=== PATIENT | female | born 1990 | race Caucasian/White ===

== ENCOUNTER 2020-11-05 10:01 | Outpatient (RCR) | payer OTHER, SELFPAY ==
[2020-11-05 11:25] VITALS: BP 96/59; PULSE 83
== END 2021-02-03 23:59 | disposition home or self-care (01) ==
LOC: ANHOBOP 10:01
PROVIDERS: Visit Provider Obstetrics & Gynecology
DX: O36.8120 Decreased fetal movements, second trimester, not applicable or unspecified (principal); Z3A.25 25 weeks gestation of pregnancy
CPT/HCPCS: 59025

== ENCOUNTER 2021-01-27 20:33 | Observation (INO) | payer OTHER, SELFPAY ==
[2021-01-27 20:42] VITALS: TEMP 36.8
--- NOTE | 2021-01-27 20:50 | PC.NURSE ---
Addendum entered by Juan Parrish RN 01/27/21 23:53: NOTE TIME SHOULD BE 2250 Original Note: Pt states contractions during night last night, resolved this AM. States contractions returned at 1830 this evening. Pt reports good movement. Denies SROM
[2021-01-27 21:00] VITALS: BP 112/66; PULSE 93
[2021-01-27 21:15] VITALS: BP 93/47; PULSE 98
[2021-01-27 21:30] VITALS: BP 110/62; PULSE 97
--- NOTE | 2021-01-27 22:48 | OBADM ---
This patient, Svitlana Sears, admitted to the OB room Labor/Delivery/Recovery 120 for observation. Patient/family oriented to hospital policies and general routines including ID bracelet, bed and alarms, visiting hours, pain management, procedures, bathroom and other care routines, personal items, smoking policy, room service/diet, and visiting hours. Patient/Family are encouraged to report perceived risks to care and to ask questions if they do not understand what they are told or what they should do.
--- NOTE | 2021-01-27 22:53 | PC.NURSE ---
DOCUMENTATION ON THIS PT DONE PER Edgar HILL RN, NOT Anitha OLIVARES RN.
--- NOTE | 2021-01-27 23:00 | PC.NURSE ---
Pt states she is feeling much better. IV fluid infused.
--- NOTE | 2021-01-29 15:42 | PM.OBTRLD ---
OB - Triage/Final Diagnosis Visit Information Reason for evaluation: threatened labor Comments/Additional reasons for admission: I have assessed the risk for this patient, Svitlana Sears, and determined that she would benefit from observation care.
== END 2021-01-27 23:05 | disposition home or self-care (01) ==
PROVIDERS: Admitting Provider Obstetrics & Gynecology; Visit Provider Obstetrics & Gynecology
DX: O47.9 False labor, unspecified (principal); Z3A.00 Weeks of gestation of pregnancy not specified
CPT/HCPCS: G0378; G0379

== ENCOUNTER 2021-02-05 13:18 | Outpatient (CLI) | payer OTHER, SELFPAY ==
[2021-02-05 13:52] LABS: Hematocrit 33.6 % (37.0-47.0); Hemoglobin 11.1 g/dL (12.0-15.0); Mean Corpuscular Hemoglobin 28.5 pg (26-34); Mean Corpuscular Volume 86.2 fl (80-100); Mean Platelet Volume 10.5 fl (7.4-10.4); Platelet Count Result 318 k/mm3 (150-375); Red Cell Distribution Width 13.2 % (11.5-14.5); White Blood Count 11.2 K/mm3 (4.5-10.0)
[2021-02-06 07:02] LABS: Rapid Plasma Reagin Non-Reactive (NonReactive)
== END 2021-02-05 13:19 | disposition home or self-care (01) ==
LOC: ANHLAB 13:20
PROVIDERS: Visit Provider Obstetrics & Gynecology
DX: O34.219 Maternal care for unspecified type scar from previous cesarean delivery (principal); Z3A.39 39 weeks gestation of pregnancy
CPT/HCPCS: 36415; 85027; 86592; 86850; 86900; 86901

== ENCOUNTER 2021-02-06 05:00 | Inpatient (IN) | payer OTHER, SELFPAY ==
[2021-02-06] VITALS (45 sets, daily range): BP systolic 113–139; BP diastolic 61–90; PULSE 59–94; RESP 14–20; TEMP 36.4–36.8; O2SAT 98–100; BMI 23.6; BMI 24.3
--- NOTE | 2021-02-06 00:22 | PM.IMHP ---
H&P: HPI History of Present Illness Date/Time: 02/06/21 00:22 30-year-old 2 para 1001 patient presents at 39 weeks gestation for repeat delivery. records are on the chart and essentially her care has been uncomplicated. Did have an elevated 1hour Glucola but the 3hour test was normal. No other issues or concerns at this time. Chief Complaint: Review of Systems Review of Systems: All systems reviewed & are unremarkable except as noted in HPI and below PMFSH Family History Family History Mother Hypertension Grandparent Diabetes mellitus Social History Social History Substance use: current Gender identity (if verbalized by the patient): Female Spiritual care concerns: No Meds Home Medications and Allergies Home Medications Medication Instructions Recorded Confirmed Type famotidine 20 mg PO BID 01/27/21 02/01/21 History magnesium oxide 400 mg PO DAILY 01/27/21 02/01/21 History ondansetron HCl 400 mg PO DAILY 01/27/21 02/01/21 History PNV no.[id number] 1 tablet PO 02/01/21 History [ Gummies] Allergies Allergy/AdvReac Type Severity Reaction Status Date / Time aspirin Allergy Mild VOMITING Verified 10/30/10 14:34 caffeine Allergy Mild Vomiting Verified 02/01/21 14:01 codeine Allergy Mild Itching Verified 02/01/21 14:01 ibuprofen Allergy Mild Unknown Verified 02/01/21 14:01 HYDROCODONE BIT Allergy Mild Itching Uncoded 02/01/21 14:01 Exam Const: General: cooperative and healthy appearing Resp: Effort & Inspection: normal respiratory effort Auscultation: clear to auscultation bilaterally Cardio: Rate: regular rate Rhythm: regular rhythm GI: Inspection: normal to inspection : Bimanual exam- vagina & uterus: enlarged ( Fundal height 38cm heart tones 140) Assessment and Plan Assessment and plan (1) 39 weeks gestation of : Code(s): Z3A.39 - 39 weeks gestation of Status: Acute (2) Previous section: Code(s): Z98.891 - History of uterine scar from previous surgery Status: Acute Additional Plan 1 proceed with repeat low transverse section.
--- NOTE | 2021-02-06 00:26 | WPDHPUPDATE1 ---
History and Physical Update Update Date/Time: 02/06/21 00:26 History and Physical has been reviewed, including an updated exam of the patient. There are NO changes in the patient's condition. Risks, benefits, and alternatives have been discussed and questions answered. Patient agrees to proceed with procedure.
--- NOTE | 2021-02-06 05:00 | LDADM ---
This patient, Svitlana Sears, was admitted to Labor/Delivery/Recovery 120 on 02/06/21 at 05:00. Plans for labor, pain management and were discussed with patient. Patient/family oriented to hospital policies and general routines including ID bracelet, bed and alarms, visiting hours, pain management, procedures, bathroom and other care routines, personal items, smoking policy, room service/diet and guest tray routines, security routines, and visiting hours. Patient/Family are encouraged to report perceived risks to care and to ask questions if they do not understand what they are told or what they should do. See OBIX for further documentation.
[2021-02-06] MEDS: LACTATED RINGERS 1,000 ML 125 ML IV CONT ×3 (05:56→08:56)
--- NOTE | 2021-02-06 07:08 | P.PNAN_ITS ---
Anes - Initial Pre Proc Eval Procedure: Operation Date: 02/06/21 07:30 Proposed Procedures p Repeat Section - Craig Walsh MD Date/Time: 02/06/21 07:08 Surgeon: Craig Walsh MD Pre Op Diagnosis: repeat Patient Data Age: 30 Gender: F Height: 1.52 m Weight: 56.5 kg Last Vital Signs Pulse 79 02/06/21 06:15 BP 123/75 02/06/21 06:15 Allergies Allergy/AdvReac Type Severity Reaction Status Date / Time aspirin Allergy Mild VOMITING Verified 10/30/10 14:34 codeine Allergy Mild Itching Verified 02/01/21 14:01 ibuprofen Allergy Mild Unknown Verified 02/01/21 14:01 adhesive tape Allergy Itching Verified 02/06/21 06:38 latex Allergy Itching Verified 02/06/21 06:38 NSAIDS (Non-Steroidal Allergy Vomiting Verified 02/06/21 06:38 Anti-Inflamma Home Medications Medication Instructions Recorded Confirmed Type famotidine 20 mg PO BID 01/27/21 02/06/21 History magnesium oxide 400 mg PO DAILY 01/27/21 02/06/21 History ondansetron HCl 400 mg PO DAILY 01/27/21 02/06/21 History PNV no.[id number] 1 tablet PO 02/01/21 History [ Gummies] Patient hx anesthesia problems: none Family hx anesthesia problems: none [facility] Past Medical History Medical History (Updated 02/06/21 @ 07:08 by Naif Abbott MD) Cyclical vomiting syndrome Family History Family History Mother Hypertension Grandparent Diabetes mellitus Social History Social History Smoking status: Current every day smoker Tobacco type: cigarettes Second hand tobacco smoke exposure: Yes Substance use: current Gender identity (if verbalized by the patient): Female Spiritual care concerns: No Anes - Eval Final PreProcedure Day of Procedure 02/06/21 07:08 Patient weight: normal Heart: regular rate and rhythm Lungs: clear to auscultation Airway: Mallampati scale class II Neurological: alert and oriented Last oral intake: >/= 8 hours ASA classification: II Emergent: no Anesthetic plan: proceed Anesthesia type and monitoring: regional spinal and standard monitoring Informed Consent: The patient's anesthetic plan and its attendant risks and benefits were discussed with the patient/family/POA. Questions were solicited and answers provided to the satisfaction of the patient/family/POA.
[2021-02-06] MEDS: SCOPOLAMINE 1.5 MG PATCH TRANSDERM (07:30)
[2021-02-06] MEDS: ceFAZolin 2 GM/D5W 50 ML 2 GM/50 ML BAG IVPB (07:34)
--- NOTE | 2021-02-06 07:47 | WPDHPUPDATE1 ---
History and Physical Update Update Date/Time: 02/06/21 07:47 Patient has desire for tubal ligation and appropriate paperwork has been signed. Permanence/failure rate/ectopic/regret has been discussed. History and Physical has been reviewed, including an updated exam of the patient. There are NO changes in the patient's condition. Risks, benefits, and alternatives have been discussed and questions answered. Patient agrees to proceed with procedure.
[2021-02-06] MEDS: KETOROLAC 30 MG/ML VIAL (*BKC) IV PUSH ×2 (08:00→16:37)
--- NOTE | 2021-02-06 08:27 | PM.OBPRVD ---
OB - Delivery Note Procedure Procedure: Procedures Operation Date: 02/06/21 07:30 Actual Procedure Side Surgeon p section with bilateral tubal ligation Craig Walsh MD events: Previous Route of delivery: (With bilateral tubal ligation) Specimen: Yes Quantitative Blood Loss (ml): 545 Anesthesia type: Spinal Disposition: PACU Narrative: patient prepped draped in usual manner for this procedure. Pfannenstiel incision made carried down the fascia which was extended bilaterally the skin incision. Superiorly and inferiorly dissected away from the rectus muscles peritoneum was entered bladder flap was developed. Uterus scored and membranes ruptured with curl clear fluid noted. Vertex unless they were delivered without difficulty cord clamped and cut and placenta removed manually. Uterus was exteriorized cleared of membranes and clots and closed using 0 Monocryl running interlocking manner with good approximation and hemostasis noted. Tubes were doubly ligated and plain suture was used. Not of tissue was removed. The left tube was using on the mesial salpinx and this was rendered hemostatic using 2 0 chromic in a running interlocking manner. Uterus returned to the abdomen uterine incision was hemostatic both tubal stumps were hemostatic and the fascia was approximated using 0 Vicryl from left angle midline right angle to midline. Subcutaneous tissue approximated using 0 plain suture and umer used to approximate skin edges a sent to cover stable condition Baby Weeks of gestation at delivery: 39 Infant gender: Female Weight (pounds): 5 Weight (ounces): 13 score one minute: 8 score five minutes: 9
[2021-02-06 08:48] LABS: Barbiturate Screen Urine Negative (Negative); Benzodiazepines Screen Urine Negative (Negative)
[2021-02-06 08:52] LABS: Amphetamine Screen Urine Negative (Negative); Cannabinoid Screen Urine Positive (Negative); Cocaine Screen Urine Negative (Negative); Methadone Screen Urine Negative (Negative); Opiate Screen Urine Negative (Negative); Phencyclidine Screen Urine Negative (Negative)
--- NOTE | 2021-02-06 10:45 | PC.NURSE ---
Patient transferred to post room #278 per stretcher. Support person present. Oriented to unit, room, information board, rooming in, admission packet and security measures. Patient verbalizes understanding.
[2021-02-06] MEDS: DEXTROSE 5%/0.45% SOD CHL 1,000 ML 125 ML IV CONT (12:19)
[2021-02-06] MEDS: SIMETHICONE 80 MG TAB.CHEW PO ×2 (13:18→16:36)
[2021-02-06] MEDS: oxyCODONE/ACETAMINOPHEN (*CRX) 5-325 MG TABLET 2 TABLET PO ×2 (13:19→18:55)
[2021-02-06] MEDS: FAMOTIDINE 20 MG TABLET PO (16:36)
[2021-02-06] MEDS: DOCUSATE SODIUM 100 MG CAPSULE PO (16:38)
[2021-02-06] MEDS: oxyCODONE/ACETAMINOPHEN (*CRX) 5-325 MG TABLET 1 TABLET PO (22:40)
[2021-02-07] MEDS: oxyCODONE/ACETAMINOPHEN (*CRX) 5-325 MG TABLET 2 TABLET PO ×5 (03:16→20:42)
[2021-02-07 05:05] LABS: Basophils Percent Auto 0.2 % (0.2-1.2); Eosinophils Absolute Auto 0.1 K/mm3 (0-0.3); Eosinophils Percent Auto 0.7 % (0-4.4); Hematocrit 28.2 % (37.0-47.0); Hemoglobin 9.1 g/dL (12.0-15.0); Immature Granulocyte Percent A 0.6 % (0-0.5); Lymphocytes Absolute Auto 3.74 K/mm3 (0.9-3.2); Lymphocytes Percent Auto 22.4 % (18.3-44.2); Mean Corpuscular HGB Conc 32.3 g/dl (32-36); Mean Corpuscular Volume 86.8 fl (80-100); Mean Platelet Volume 10.3 fl (7.4-10.4); Monocytes Absolute Auto 1.5 K/mm3 (0.1-0.6); Monocytes Percent Auto 8.9 % (2.6-8.5); Neutrophils Absolute Auto 11.2 K/mm3 (1.3-6.7); Neutrophils Percent Auto 67.2 % (45.5-73.1); Platelet Count Result 314 k/mm3 (150-375); Red Blood Count 3.25 M/mm3 (4.2-5.4); Red Cell Distribution Width 13.1 % (11.5-14.5); White Blood Count 16.7 K/mm3 (4.5-10.0)
[2021-02-07] MEDS: SIMETHICONE 80 MG TAB.CHEW PO ×3 (07:55→20:42)
[2021-02-07] MEDS: DOCUSATE SODIUM 100 MG CAPSULE PO ×2 (07:55→16:31)
[2021-02-07 08:00] VITALS: BP 121/70; PULSE 84; RESP 18; TEMP 36.6
--- NOTE | 2021-02-07 09:34 | PM.OBDSVD ---
DS: Admitting Diagnosis Admitting Diagnosis DS: Discharge Diagnosis Discharge Diagnosis (1) 39 weeks gestation of : Code(s): Z3A.39 - 39 weeks gestation of Status: Acute OB - DS: Summary OB Procedures : None OB Procedures Intrapartum: and Tubal ligation OB Procedures: : None Peripartum Data Procedures: Procedures Operation Date: 02/06/21 07:30 Actual Procedure Side Surgeon p section with bilateral tubal ligation Craig Walsh MD Time Spent with Patient Time attestation: Total time spent providing and/or coordinating discharge services: DS: Data Data Completed and Pending Pending studies at discharge: Pending at discharge 02/05/21 08:00 Surgical [PTH] Routine Labs on day of discharge: Labs from last 24 hours 02/07/21 02/07/21 04:50 04:50 WBC 16.7 H RBC 3.25 L Hgb 9.1 L Hct 28.2 L MCV 86.8 MCH 28.0 MCHC 32.3 RDW 13.1 Plt Count 314 MPV 10.3 Immature Gran % (Auto) 0.6 H Neut % (Auto) 67.2 Lymph % (Auto) 22.4 Louisa % (Auto) 8.9 H Eos % (Auto) 0.7 Baso % (Auto) 0.2 Lymph # (Auto) 3.74 H Louisa # (Auto) 1.5 H Eos # (Auto) 0.1 Baso # (Auto) 0.0 Abs Immat Gran (auto) 0.10 H Absolute Neuts (auto) 11.2 H Absolute Nucleated RBC 0.0 Nucleated RBC % 0.0 Blood Type A Negative Antibody Screen Negative Screen Negative Baby's Blood Type A pos Baby's MOJGAN Negative Doses of RhIg Required 1 Discharge Plan Discharge Discharging Clinician: Craig Walsh Anticipated Discharge Date/Time: 02/08/21 09:34 Patient Disposition: Home, Self-Care Activity: as tolerated Diet: as tolerated Wound Care Instructions: incision open to air Discharge Instructions: office thursday/thursday for staple removal Patient Instructions: Antibiotic Form, How to Stop Smoking (DC) Stand Alone Forms: General Discharge Information Follow-up/Referrals: Craig Walsh MD [Physician] - 3 Weeks Discharge Medications: New oxycodone-acetaminophen 5-325 mg Tablet 1 tablet PO Q4H PRN (Reason: Pain Rated 4-6) Qty: 30 RF: 0 Continued Gummies 400 mcg-35 mg- 25 mg-5 mg Tablet,Chewable 1 tablet PO RF: 0 ondansetron HCl 4 mg tablet 400 mg PO DAILY RF: 0 famotidine 20 mg tablet 20 mg PO BID RF: 0 magnesium oxide 400 mg (241.3 mg magnesium) tablet 400 mg PO DAILY RF: 0 Date of admission: 02/06/21 05:00 Primary Care Provider: PHYSICIAN,SPECIALIZED DEVELOPER Admitting Provider: Craig Walsh Attending physician on admission: Craig Walsh Condition: Stable
--- NOTE | 2021-02-07 11:52 | PCCCNOTE ---
Care Coordination met with pt. and FOB this morning to discuss discharge planning. Pt. states that her current D/C plan is to return home with FOB and her four year old son. Pt. confirms that she has everything needed to safely bring baby home. Pt. will continue to bottle feed once home, she states she is current with WIC. CC provided pt. with additional resources. Pt. and baby both tested positive for Marijuana at time of admission. Pt. states she used Marijuana throughout the to assist with her nausea. Pt. has a prior DCFS case open with her first born child. She did not wish to discuss the details with CC. CC reported drug use to [place] D[facility] and pt.'s online case number is [id number]. Pt. and FOB made aware of the report and have no questions or concerns.
--- NOTE | 2021-02-07 12:13 | WPDANLDNPN2 ---
Anes-Prog Note L&D-Neuraxial Date/Time: 02/07/21 12:13 Neuraxial medications: intrathecal PF morphine Opiod-related complaints: none Patient feedback: Patient satisfied with post-operative pain management.
--- NOTE | 2021-02-07 12:13 | WPDANLDPN2 ---
Anes-Prog Note L&D Date/Time: 02/07/21 12:13 Comfortable throughout: section Neuraxial method: spinal Epidural/Spinal procedure site: clean & non-tender Neuro status: Neuro function grossly intact. Cardiovascular status: normal Respiratory status: normal Airway patency: baseline Mental status: baseline Post-Op hydration status: normal Vital Signs: Last Vital Signs Temp 36.6 C 02/07/21 08:00 Pulse 84 02/07/21 08:00 Resp 18 02/07/21 08:00 BP 121/70 02/07/21 08:00 Pulse Ox 100 02/06/21 10:25 Pain score (VAS): 2 I/O: Intake & Output 02/06/21 02/07/21 02/07/21 23:59 07:59 15:59 Intake Total 1300 Output Total 2600 Balance -1300 Post-procedural complaints: none Patient feedback: Patient satisfied with anesthetic care.
[2021-02-07] MEDS: FAMOTIDINE 20 MG TABLET PO ×2 (12:51→16:31)
[2021-02-07] MEDS: MAGNESIUM OXIDE 400 MG TABLET PO (12:51)
--- NOTE | 2021-02-07 14:00 | PC.NURSE ---
Pt. refused Rhogam due to bilateral tubal ligation.
[2021-02-07 20:42] VITALS: BP 125/80; PULSE 94; RESP 16; TEMP 36.7
[2021-02-07] MEDS: POLYSACCHARIDE IRON COMPLEX 150 MG CAPSULE PO (20:42)
[2021-02-08] MEDS: oxyCODONE/ACETAMINOPHEN (*CRX) 5-325 MG TABLET 2 TABLET PO ×3 (00:55→09:41)
[2021-02-08 08:05] VITALS: BP 119/75; PULSE 77; RESP 16; TEMP 36.5; O2SAT 97
[2021-02-08] MEDS: MAGNESIUM OXIDE 400 MG TABLET PO (09:40)
[2021-02-08] MEDS: POLYSACCHARIDE IRON COMPLEX 150 MG CAPSULE PO (09:40)
[2021-02-08] MEDS: FAMOTIDINE 20 MG TABLET PO (09:41)
[2021-02-08] MEDS: DOCUSATE SODIUM 100 MG CAPSULE PO (09:41)
[2021-02-08] MEDS: oxyCODONE/ACETAMINOPHEN (*CRX) 5-325 MG TABLET 1 TABLET PO (09:41)
--- NOTE | 2021-02-08 13:24 | PC.NURSE ---
Patient instructed on viewing the discharge video Mother & Baby Care, The First Two Weeks . Patient was given the opportunity and encouraged to ask questions. Patient verbalized understanding of information shared and has been given the mother/baby guide for home reference.
[2021-02-08] MEDS: RHO(D) IMMUNE GLOBULIN 300 MCG/2 ML SYRINGE IM (14:20)
[2021-02-09 07:47] VITALS: BP 112/75; PULSE 94; RESP 20; TEMP 37.5; O2SAT 99
--- NOTE | 2021-02-13 12:17 | PM.OBDSVD ---
DS: Admitting Diagnosis Admitting Diagnosis OB - DS: Summary OB Procedures : None OB Procedures Intrapartum: and Tubal ligation OB Procedures: : None Peripartum Data Procedures: Procedures Operation Date: 02/06/21 07:30 Actual Procedure Side Surgeon p section with bilateral tubal ligation Craig Walsh MD Time Spent with Patient Time attestation: Total time spent providing and/or coordinating discharge services: DS: Data Data Completed and Pending Completed studies during hospitalization: Pending at discharge 02/05/21 08:00 Surgical [PTH] Routine Discharge Plan Discharge Consulting providers: Naif Abbott Discharging Clinician: Craig Walsh Anticipated Discharge Date/Time: 02/08/21 09:34 Patient Disposition: Home, Self-Care Activity: as tolerated Diet: as tolerated Wound Care Instructions: incision open to air Discharge Instructions: office thursday/thursday for staple removal Education: Mom and Baby Guide Given to: Mother Follow-Up: Call your delivering provider's office for an appointment to be seen in: 3 weeks Mom and baby should come to the [facility] for the follow-up appointment. Appointment Date/Time: February 09, 2021 at 8:00 am What to expect at your follow-up visit: Physical Assessment Call [phone] if you are unable to keep your appointment time. BREAST CARE: * Wear a snug supportive bra. * For engorgement discomfort: Bottle Feeding: * May apply ice packs ABDOMINAL INCISION: (if applicable) * Allow incision to air dry * Do NOT use lotions for powders on your incision * When showering, allow soap and water to run over the incision, but do not wash incision EPISIOTOMY/PERINEAL CARE: * Until bleeding stops, use your renee bottle after urinating * Change your pad frequently throughout the day * No tub baths until seen by your physician - You may shower ACTIVITY: * Rest as much as possible. * Do not exercise or lift anything heavier than your baby (such as laundry or other children.) * Avoid stairs or driving as much as possible. * Do not put anything into the vagina. No douching, tampons, or sexual activity until seen by physician. NOTIFY PHYSICIAN IF YOU HAVE ANY QUESTIONS OR IF ANY OF THE FOLLOWING SYMPTOMS OCCUR: * If your incision becomes red, swollen, or more painful than what you have experienced in the hospital. * If your vaginal bleeding becomes foul smelling. * If your vaginal bleeding becomes more heavy than a period or if your bleeding changes from pink to bright red. However, you may pass an occasional walnut-sized clot once or twice for the first week . * If you experience a sharp, shooting pain in you calves. * If you discover a hard, reddened area on your breast or if you experience flu-like symptoms. DIET: * Eat regular, well-balanced meals. * Drink plenty of fluids daily. If , drink to thirst. Patient Instructions: How to Stop Smoking (DC) Stand Alone Forms: General Discharge Information Follow-up/Referrals: Craig Walsh MD [Physician] - 3 Weeks Discharge Medications: New oxycodone-acetaminophen 5-325 mg Tablet 1 tablet PO Q4H PRN (Reason: Pain Rated 4-6) Qty: 30 RF: 0 Continued Gummies 400 mcg-35 mg- 25 mg-5 mg Tablet,Chewable 1 tablet PO RF: 0 ondansetron HCl 4 mg tablet 400 mg PO DAILY RF: 0 famotidine 20 mg tablet 20 mg PO BID RF: 0 magnesium oxide 400 mg (241.3 mg magnesium) tablet 400 mg PO DAILY RF: 0 Date of admission: 02/06/21 05:00 Primary Care Provider: PHYSICIAN,LEAD FRONT END DEVELOPER Admitting Provider: Craig Walsh Attending physician on admission: Craig Walsh Condition: Stable
== END 2021-02-08 14:48 | disposition home or self-care (01) | DRG 540 ==
LOC: ANHLDR 09:40 → ANHOB2 10:55
PROVIDERS: Admitting Provider Obstetrics & Gynecology; Visit Provider Obstetrics & Gynecology
PROC: 10D00Z1 Extraction of Products of Conception, Low, Open Approach (ICD-10-PCS; CPT 59514; principal; 2021-02-06 07:30)
DX: O34.211 Maternal care for low transverse scar from previous cesarean delivery (principal); Z37.0 Single live birth; Z3A.39 39 weeks gestation of pregnancy; Z30.2 Encounter for sterilization
CPT/HCPCS: 36415; 80307; 85025; 85461; 88302; 88307; 90384; A9270; J0131; J0690; J1885; J2274; J2370; J2405; J2590; J2790; J7120

== ENCOUNTER 2022-01-24 11:05 | Emergency (ER) | payer OTHER, SELFPAY ==
--- NOTE | ~2022-01-24 | XR_ITS ---
EXAMINATION: XR knee LT min 4V DATE: 01/24/2022 12:43 INDICATION: Diffuse left knee pain and inability to straighten the knee post fall TECHNIQUE: Anteroposterior, 2 oblique and crosstable lateral views of the left knee were obtained COMPARISON: None. FINDINGS: Alignment is normal. No fracture. No joint effusion/layering lipohemarthrosis. Soft tissues are unre markable. IMPRESSION: 1. Negative left knee radiographs. Reviewed, dictated and finalized at location B.
[2022-01-24 11:11] VITALS: BP 116/75; PULSE 102; RESP 14; TEMP 36.9; O2SAT 97
--- NOTE | 2022-01-24 12:16 | ED.GENADULT ---
HPI - General Adult General Chief complaint: Extremity Injury, Lower Stated complaint: left leg injury Time Seen by Provider: 01/24/22 11:32 History of Present Illness HPI narrative: 31-year-old female presenting to the emergency department evaluation of left knee pain. Patient states she was walking in the dark last night when she slipped causing her soft fall and to laterally extend her left knee. Patient states she now has pain with weightbearing and movement Related Data Allergies Allergy/AdvReac Type Severity Reaction Status Date / Time aspirin Allergy Mild VOMITING Verified 12/17/21 15:08 codeine Allergy Mild Itching Verified 12/17/21 15:08 ibuprofen Allergy Mild Unknown Verified 12/17/21 15:08 adhesive tape Allergy Itching Verified 12/17/21 15:08 latex Allergy Itching Verified 12/17/21 15:08 NSAIDS (Non-Steroidal Allergy Vomiting Verified 12/17/21 15:08 Anti-Inflamma Review of Systems Review of Systems: CONSTITUTIONAL: Denies fever, chills, or sweats. EYES: Denies visual changes, redness, or discharge. ENT: Denies rhinorrhea, congestion, sore throat, or otalgia. CARDIOVASCULAR: Denies chest pain, palpitations, or edema. RESPIRATORY: Denies cough or dyspnea. GASTROINTESTINAL: Denies abdominal pain, nausea, vomiting, or diarrhea. GENITOURINARY: Denies dysuria or hematuria. SKIN: Denies rash or itching. MUSCULOSKELETAL: See HPI NEUROLOGIC: Denies headache, numbness, or weakness. PSYCHIATRIC: Denies anxiety or depression. [facility] Past Medical History Medical History Cyclical vomiting syndrome Surgical History Surgical History History of tubal ligation Family History Family History Mother Hypertension Grandparent Diabetes mellitus Social History Social History (Updated 12/17/21 @ 15:13 by Clair Jones CMA) Smoking status: Current every day smoker Tobacco type: cigarettes Second hand tobacco smoke exposure: Yes Alcohol intake: current Alcohol use details: social Substance use: former Additional living arrangements comments: currently living with ex-boyfriend Additional occupation/education comments: dog care/ babysit Gender identity (if verbalized by the patient): Female Sexual Orientation (if Verbalized by the Patient): Straight or Heterosexual Spiritual care concerns: No Exam Narrative: APPEARANCE: Well appearing, no pain, no distress, well-nourished. HEAD: normocephalic, atraumatic. EYES: PERRLA/EOMI, conjunctivae clear. NOSE: Normal no drainage NECK: Supple. No adenopathy, no masses. RESPIRATORY: Airway patent, respirations nonlabored. Clear to auscultation bilaterally, no rales, rhonchi, wheezing. CARDIOVASCULAR: Regular rate and rhythm without murmurs rubs or gallops. ABDOMINAL: Soft, nontender, nondistended, normal bowel sounds MUSCULOSKELETAL: Moves all extremities. No tenderness proximal or distal to the knee. Patient does have some tenderness to medial and lateral aspects of left knee. No deformity, no ecchymosis, no effusion. NEURO: Alert. Cranial nerves II through XII intact. Grossly intact SKIN: Warm, dry. Normal Color PSYCHIATRIC: Normal affect/mood. Course Course Emergency Course: Patient was updated on results of her x-ray. Patient was provided a knee immobilizer and crutches for limited weightbearing. Patient was encouraged to have close follow-up with her primary care physician. Vital Signs Vital signs: Vital Signs Temperature 98.4 F 01/24/22 11:11 Pulse Rate 102 H 01/24/22 11:11 Respiratory Rate 14 01/24/22 11:11 Blood Pressure 116/75 01/24/22 11:11 Pulse Oximetry 97 01/24/22 11:11 Oxygen Delivery Room Air 01/24/22 11:11 Temperature 98.4 F 01/24/22 11:11 Pulse Rate 102 H 01/24/22 11:11 Respiratory Rate 14 01/24/22 11:11 Blood Pressure
--- NOTE | 2022-01-24 13:28 | PC.NURSE ---
@1310 - knee immobilizer placed without difficulty. Crutch training completed and pt. demonstrated understanding and correct technique.
== END 2022-01-24 13:15 | disposition home or self-care (01) ==
PROVIDERS: Emergency Provider Emergency Medicine
DX: S89.92XA Unspecified injury of left lower leg, initial encounter (principal); F17.210 Nicotine dependence, cigarettes, uncomplicated; W01.0XXA Fall on same level from slipping, tripping and stumbling without subsequent striking against object, initial encounter
CPT/HCPCS: 73564; 99283

== ENCOUNTER 2022-02-07 06:35 | Outpatient (CLI) | payer OTHER, SELFPAY ==
--- NOTE | ~2022-02-07 | MR_ITS ---
EXAMINATION: MR knee LT wo con DATE: 02/07/2022 07:30 INDICATION: Left knee injury post fall 2 weeks prior TECHNIQUE: Magnetic resonance imaging (MRI) of the left knee was performed without intravenous contra st. Sequences included coronal PD-weighted FSE, coronal PD-weighted FS FSE, sagittal T2-weighted FSE , sagittal PD-weighted FS FSE and axial PD weighted fat saturated FSE. COMPARISON: None. FINDINGS: Evaluation mildly limited by motion artifact or blurring on the fat saturated sequences . Medial compartment: Medial meniscus is normal. Articular cartilage is normal. Lateral compartment: Lateral meniscus is normal. Articular cartilage is normal. Patellofemoral compartment: Articular cartilage is normal. Ligaments and tendons: Anterior and posterior cruciate ligaments are normal. The fibular collateral ligament complex is norm al. There is a partial tear involving the anterior third of the proximal medial collateral ligament. The extensor mechanism is normal. The visualized medial and lateral hamstring tendons as well as the iliotibial band are normal. Fluid: Physiologic amount of fluid in the joint space. No loose osteochondral bodies identified. Moderate-si zed multilobulated Leblanc's cyst which extends approximately 8 cm craniocaudally along the posterior m argin of the medial head of the gastrocnemius muscle and measuring up to 2.1 x 1.0 cm in maximal chandra saxial dimensions. Osseous/other: There is marrow edema surrounding a curvilinear low signal intensity subarticular impaction fracture line underlying the posterior weightbearing lateral femoral condyle. The fracture is nondisplaced wit h no evident incongruity or disruption of the cortex. Bone marrow signal is otherwise normal. IMPRESSION: 1. Partial tear of the proximal medial collateral ligament. 2. Nondisplaced impaction fracture underlying the posterior weightbearing lateral femoral condyle. 3. Moderate-sized Leblanc's cyst. Reviewed, dictated and finalized at location A. IMPRESSION: 1. Partial tear of the proximal medial collateral ligament. 2. Nondisplaced impaction fracture underlying the posterior weightbearing later al femoral condyle. 3. Moderate-sized Leblanc's cyst.
== END 2022-02-07 06:36 | disposition home or self-care (01) ==
PROVIDERS: Visit Provider Orthopaedic Surgery
DX: S89.92XA Unspecified injury of left lower leg, initial encounter (principal); S83.412A Sprain of medial collateral ligament of left knee, initial encounter; S72.425A Nondisplaced fracture of lateral condyle of left femur, initial encounter for closed fracture; M71.22 Synovial cyst of popliteal space [Baker], left knee
CPT/HCPCS: 73721